=== PATIENT | male | born 1970 | race Two or more races ===

== ENCOUNTER 2020-11-26 11:55 | Emergency (ER) | payer OTHER ==
[~2020-11-26] VITALS: Ht 177.8 cm; Wt 72.6 kg
--- NOTE | 2020-11-26 11:55 | NUR ---
PT [id number], FOUND UNRESPONSIVE AND PALE FOR POSSIBLE OPIATE OD. NARCAN 4MG TOTAL GIVEN IM/IV/ PT IS AAOX4, NOT IN RESPIRATORY DISTRESS, V/S STABLE, KEPT RESTED AND COMFORTABLE. PT STATING HE WANTS TO GO HOME WILL SIGN AMA FORM. AWARE.
--- NOTE | 2020-11-26 12:05 | NUR ---
IV removed. Catheter intact and site benign. Pressure and 4x4 applied to site. No bleeding noted.
--- NOTE | 2020-11-26 12:09 | NUR ---
Patient does not wish to proceed with medical care recommended by Dr. Díaz. Patient given information related to possible complications, up to and including , which could occur as a result of leaving the hospital at this time. Patient verbalizes understanding of risks involved due to leaving against medical advice. Patient has signed AMA form.
[2020-11-26] MEDS ORDERED: NALO4SPR NS (12:10)
[2020-11-26 12:14] VITALS: BP 149/75
== END 2020-11-26 12:14 | disposition left against medical advice (07) ==
LOC: ER 11:57
DX: T40.2X1A Poisoning by other opioids, accidental (unintentional), initial encounter (principal); Y92.89 Other specified places as the place of occurrence of the external cause

== ENCOUNTER 2024-07-29 09:14 | Emergency (ER) | payer OTHER ==
[~2024-07-29] VITALS: Ht 177.8 cm; Wt 74.8 kg
[~2024-07-29 09:14] MED LIST: NALO4SPR NS
[2024-07-29 10:05] LABS: BASOPHILS # (AUTO) 0.1 K/uL (0.0-0.2); BASOPHILS % (AUTO) 0.9 % (0.0-2.0); EOSINOPHILS # (AUTO) 0.2 K/uL (0.0-0.7); EOSINOPHILS % (AUTO) 3.3 % (0.0-6.0); HEMATOCRIT 43 % (39-51); HEMOGLOBIN 14.6 g/dL (13.5-17.5); LYMPHOCYTES % (AUTO) 29.2 % (20.0-44.0); MEAN CORPUSCULAR HEMOGLOBIN 31 PG (26.0-33.0); MEAN CORPUSCULAR HGB CONC 34 g/dl (31.0-36.0); MEAN CORPUSCULAR VOLUME 90 fL (80-96); MONOCYTES # (AUTO) 0.7 K/uL (0.1-1.30); MONOCYTES % (AUTO) 10.7 % (2.0-12.0); NEUTROPHILS # (AUTO) 3.9 K/uL (1.8-8.9); NEUTROPHILS % (AUTO) 55.9 % (43.0-81.0); PLATELET COUNT (AUTO) 233 K/uL (150-450); RED BLOOD CELL COUNT(AUTO) 4.79 MIL/uL (4.5-6.0); RED CELL DISTRIBUTION WIDTH 13.5 % (11.5-15.0)
[2024-07-29 10:09] LABS: CALCIUM, SERUM 9.3 mg/dL (8.5-10.1); CARBON DIOXIDE 33 mmol/L (21-32); CHLORIDE 104 mmol/L (98-107); CREATININE 0.9 mg/dL (0.6-1.3); GLUCOSE 111 mg/dL (74-106); POTASSIUM 4.3 mmol/L (3.5-5.1); SODIUM SERUM 143 mmol/L (136-145); UREA NITROGEN, BLOOD 15 mg/dL (7-18)
[2024-07-29] MEDS ORDERED: AZIT250T13 PO (12:25)
[2024-07-29] MEDS ORDERED: PRED20TA PO (12:25)
[2024-07-29] MEDS ORDERED: ALBU18HF2 INH (12:25)
[2024-07-29 12:51] VITALS: BP 115/81; TEMP 98.1; O2SAT 99
== END 2024-07-29 12:51 | disposition home or self-care (01) ==
LOC: ER 09:22
DX: R07.89 Other chest pain (principal); R05.3 Chronic cough; Z79.52 Long term (current) use of systemic steroids
CPT/HCPCS: 36415; 71045-TC; 80048-TC; 84484-TC; 85025-TC